=== PATIENT | female | born 1980 | race Caucasian/White ===

== ENCOUNTER 2023-10-03 09:00 | Outpatient (CLI) | payer BC ==
--- NOTE | 2023-10-03 10:50 | XRAY Report ---
PROCEDURE: Ribs w/PA Chest 3+V LT INDICATIONS: RIB PAIN, LEFT SIDED TECHNIQUE: 2 views of the ribs were acquired, along with a single view chest. COMPARISON: None. FINDINGS: Surgical changes and devices: None. Bones and chest wall: No displaced fracture or dislocation is identified. Lungs and pleura: Lungs are clear. No pleural effusions. Mediastinum: Normal heart size IMPRESSION: No acute radiographic abnormality. If there is high concern for occult injury, consider repeat radiog [place] or cross-sectional imaging. Reviewed by: Mina Curiel MD on 10/03/2023 10:48 AM PDT Approved by: Mina Curiel MD on 10/03/2023 10:48 AM PDT Station ID: [id number]
== END 2023-10-03 09:15 | disposition home or self-care (01) ==
LOC: DI.N 09:00
PROVIDERS: ATTEND Nurse Practitioner
DX: R07.81 Pleurodynia (principal)